=== PATIENT | male | born 1970 | race American Indian/Alaskan Native ===

== ENCOUNTER 2021-02-03 22:13 | Emergency (ER) | payer OTHER ==
[2021-02-03 23:56] LABS: Hematocrit 48.1 % (35.5-45.6); Hemoglobin 16.2 gm/dl (11.8-15.2); Mean Corpuscular HGB Conc 34 % (32-34); Mean Corpuscular Volume 89 fl (84-94); Platelet Count 184 K/mm3 (140-440); Red Blood Count 5.42 M/mm3 (3.65-5.03); Red Cell Distribution Width 15.3 % (13.2-15.2)
[2021-02-04 01:00] LABS: Alanine Aminotransferase 53 units/L (7-56); Albumin 4.1 g/dL (3.9-5); BUN/Creatinine Ratio 10; Blood Urea Nitrogen 9 mg/dL (9-20); Hemolysis Index 4
[2021-02-04 02:10] LABS: Bilirubin,Urine NEG (Negative); Blood,Urine MOD (Negative); Color,Urine Amber (Yellow); Mucus,Urine 3+ /HPF; Urobilinogen,Urine < 2.0 mg/dL (<2.0)
[2021-02-04 03:30] LABS: Anisocytosis 1+; Band Neutrophils # (Manual) 0.1 K/mm3; Platelet Estimate Consistent w Auto; Total Cells Counted 100
[2021-02-04] MEDS ORDERED: levoFLOXacin 500 MG TAB PO ONE (04:05)
[2021-02-04] MEDS ORDERED: DIPHENOXYLATE/ATROPINE TAB PO ONE (04:05)
[2021-02-04] MEDS ORDERED: ONDANSETRON 4 MG ODT TAB PO ONE (04:05)
[2021-02-04] MEDS ORDERED: SODIUM CHLORIDE 0.9% 1000 ML 1,000 ML IV ONE (04:12)
[2021-02-04 06:03] VITALS: BP 131/78
== END 2021-02-04 06:03 | disposition home or self-care (01) ==
LOC: ED 22:13
DX: R19.7 Diarrhea, unspecified (principal); F17.200 Nicotine dependence, unspecified, uncomplicated; Z79.899 Other long term (current) drug therapy
CPT/HCPCS: 36415; 80053; 81001; 85007; 85025; 96360; 99283; J7030; Q0162